=== PATIENT | male | born 1995 | race Caucasian/White ===

== ENCOUNTER 2025-04-16 15:30 | Emergency (ER) | payer BC, SELFPAY ==
[2025-04-16 15:39] VITALS: BP 173/86; PULSE 92; RESP 20; TEMP 36.8; O2SAT 100
[2025-04-16 15:51] LABS: EDUAAPPEAR Clear; EDUABILI Negative (Negative); EDUABLOOD Negative (Negative); EDUACOLOR1 Yellow; EDUAGLUCOSE Negative (Negative); EDUAKETONE Negative (Negative); EDUALEUKO Negative (Negative); EDUANITRATE Negative (Negative); EDUAPH 6.5; EDUAPROTEIN Negative (Negative); EDUASPGRAVITY 1.030; EDUAUROBILI 0.2
--- OUTSIDE RECORDS SUMMARY | 2025-04-16 16:40 | XMS_ITS | Encounter Summary ---
Author Organization [facility] Address [address] [place] [address] Phone Care Team Providers Care Livestock Buyer Name Role Phone Toya Perry APRN, AURY Primary Care Prov ider Mayank Lorenzo MD Unavailable Encounter Details Date Type Department Care Team (Late st Contact Info) Description 04/29/2022 Transcribe Orders [facility] Central Scheduling [address] [place] [address] Toya Perry APRN, SHIPPING HAND #[address] [address] Social History Tobacco Use Types Packs/Day Years Used Date Smoking Tobacco: Never Smokeless Tobacco: Never Alcohol Use Standard Drinks/Week Comments Not Currently 0 (1 standard drink = 0.6 oz pur e alcohol) PHQ-2 Answer Date Recorded Total Score - Questions 1-9 0 02/13 Sexually Active Control Partners Comments Yes None Female Sex and Gender Information Value Date Recorded Sex Assigned at Not on file Legal Sex Male 11:11 PM CDT Gender Identity Not on file Sexual Orientation Not on file COVID-19 Exposure Response Date Recorded In the last 10 days, have yo u been in contact with someone who was confirmed or suspected to have Coronavirus/COVID-19? No / Unsure 04/28/2022 8:20 AM EDDY CURRENT INSPECTOR documented as of this encounter Plan of Treatment Upcoming Encounters Date Type Department Care Team (Latest Contact Info) Description 05/29/2025 2:00 PM EDDY CURRENT INSPECTOR Outpatient Clinic Visit [facility] [address] [facility] [place] [address] Kya Reeves, MEGAN [address] [place] [address] Discharge Disposition: Discharged to home or Selfcare 08/13/2025 7:30 AM CDT Office Visit [facility] Medical [facility] - Family [facility] #2 [facility] [place] [address] Toya Perry APRN, SHIPPING HAND #[address] [address] documented as of this encounter Goals Goal Patient Goal Type Associated Problems Recent Progress Patient-Stated? Author worry less Anxiety Improving( 7:20 AM CDT) Yes Loren Martinez LCSW Note: to have reduction of anxiety and depression symptoms. Goal Reviewed with: patient today Readiness to change: Ready to change Department associated with goal: [facility] Steps to achieve goal: to attend, at least twice monthly, counseling sessions for 4 months. 45 minute sessions will be used. to identify, verbalize and process at least three contributing factors/triggers to anxiety. to identify and verbalize at least three actions/skills to prevent and/or cope with anxiety to put into action, at least one time weekly, for one month, an action/skill to prevent and or cope with anxiety. Behavioral Health Behavioral Health Improving( 7:20 AM CDT) No Loren Martinez LCSW Note: dealing with recent events Goal Reviewed with: patient Readiness to change: Ready to change Department associated with goal: [facility] Steps to achieve goal: 1. will attend at least four counseling sessions either individual and/or group, engaging in each session by verbalizing and processing thoughts and feelings related to grief and loss. 2. will report reduced feelings of guilt and resentment. 3. will identify and implement at least two outlets for grief and or coping skills to aid in managing problematic responses to grief. documented as of this encounter Visit Diagnoses Not on filedocumented in this encounter Additional Health Concerns Assessment Noted Time PHQ-9 Depression Total Score: 0 02/26/20 21 8:49 AM CDT documented as of this encounter Care Teams Livestock Buyer Relationship Specialty Start Date End Date Toya Perry APRN, SHIPPING HAND #[address] [facility] [address] [place] [address] PCP - General Advanced Practice Nurse 06/27/19 Mayank Lorenzo MD #[address] [facility] [address] [place] [address] Consulting Physician Urological Surgery 04/28/22 documented as of this encounter
--- OUTSIDE RECORDS SUMMARY | 2025-04-16 16:40 | XMS_ITS | Clinical Summary ---
Author Organization [facility] Address [address] [place] [address] Care Team Providers Care Occupational Therapy Manager Name Role Phone Kisha Thompson MD Primary Care Provider [phone] Source Comments [facility],non-owned Affiliates and Associated Physician Practices is amultiple site organization consisting of ambulatory clinics and hospital sitesin [place], [place], [place] and [place]. This disclosure is being madepursuant to the Care Everywhere program and may not contain all information available regarding this patient. Last updated 18.[facility] [employer] Medications * Be aware that medications may not be up to date on this document. Alwaysverify current medications with the patient. 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 Gender Identity Not on file Sexual Orientation Not on file Last Filed Vital Signs Vital Sign Reading Time Taken Comments Blood Pressure 114/60 12/22/2009 10:00 AM CDT Pulse 64 12/22/2009 10:00 AM CDT Temperature - - Respiratory Rate 12 12/22/2009 10:00 AM CDT Oxygen Saturation - - Inhaled Oxygen Concentration - - Weight 54.6 kg (120 lb 5.9 oz) 12/22/2009 9:45 A M CDT Height 168 cm (5' 6.14) 12/22/2009 9:45 AM CDT Body Mass Index 19.35 12/22/2009 9:45 AM CDT Plan of Treatment Health Maintenance Due Date Last Done Comments HIV SCREENING 2010 HEPATITIS C SCREENING 03/17/2013 DTAP/TDAP/TD VACCINES (1 - Tdap) 2014 HEPATITIS B VACCINE (1 of 3 - 19+ 3-dose series) 2014 HPV VACCINE (1 - 3-dose SCDM series) 2022 DEPRESSION SCREENING 05/16/2024 COVID-19 VACCINE (1 - 2024-2 6 season) 2025 INFLUENZA VACCINE (#1) 2025 ZOSTER VACCINE (1 of 2) 2045 HIB VACCINE Aged Out No longer eligi ble based on patient's age to complete this topic MENINGOCOCCAL (Group B) VACC INE SHARED DECISION-MAKING Aged Out No longer eligibl e based on patient's age to complete this topic MENINGOCOCCAL GROUPS A/C/Y/W VACCINE Aged Out No longer eligible b ased on patient's age to complete this topic PNEUMOCOCCAL VACCINE Aged Out No long er eligible based on patient's age to complete this topic Insurance MEDICAID - OUT OF STATE Care Teams Occupational Therapy Manager Relationship Specialty Start Date End Date Kisha Thompson MD [address] [place] [address] [facility] - General 12/22/09
--- OUTSIDE RECORDS SUMMARY | 2025-04-16 16:40 | XMS_ITS | Encounter Summary ---
Author Organization [facility] Address [address] [place] [address] Phone Care Team Providers Care Document Image Technician Name Role Phone Toya Perry APRN FRONT OFFICE HELP Primary Care Prov ider Mayank Lorenzo MD Unavailable Reason for Visit * Reason Comments Medication Refill Encounter Details Date Type Department Care Team (Late st Contact Info) Description 06/06/2023 Refill [facility] #2 [place] [address] Toya Perry APRN, FRONT OFFICE HELP #[address] [address] Medication Refill Social History Tobacco Use Types Packs/Day Years Used Date Smoking Tobacco: Never Smokeless Tobacco: Never Alcohol Use Standard Drinks/Week Comments Not Currently 0 (1 standard drink = 0.6 oz pur e alcohol) PHQ-2 Answer Date Recorded Total Score - Questions 1-9 0 04/15 Education Answer Date Recorded What is the highest level of school you have completed or the highest degree you have received? Associate degree: occupational, technical, or vocational program 12/16/2022 Sexually Active Control Partners Comments Yes None Female Sex and Gender Information Value Date Recorded Sex Assigned at Not on file Legal Sex Male 11:11 PM CDT Gender Identity Not on file Sexual Orientation Not on file documented as of this encounter Miscellaneous Notes * Telephone Encounter - Suly Terry RN - 06/06/2023 1:04 PM CST Medication failed the protocol, provider to review and approve the medication order if appropriate. Requested Prescriptions Pending Prescriptions Disp Refills escitalopram (LEXAPRO) 10 MG Tablet [Pharmacy Med Name: Escitalopram Oxalate 10 MG Oral Tablet] 30 Tablet 5 Sig: Take 1 tablet by mouth once daily SSRI (6 Month Refill Only) Protocol Failed - 06/06/2023 9:05 AM Failed - Patient has established therapy with SSRI for at least 6 months Passed - Visit with relevant provider in past 6 months or upcoming 90 days Recent Visits Date Type Provider Dept 04/29/23 Office Visit Toya Perry APRN, CNP [facility] 02/01/23 Office Visit Toya Perry APRN, CNP [facility] 12/17/22 Office Visit Toya Perry APRN, CNP [facility] Showing recent visits within past 182 days and meeting all other requirements Future Appointments No visits were found meeting these conditions. Showing future appointments within next 90 days and meeting all other requirements Passed - Has an encounter in the past 6 months with a depression, anxiety, adjustment disorder, OCD, or PTSD visit diagnosis JAVA PROGRAMMER documented in this encounter Plan of Treatment Upcoming Encounters Date Type Department Care Team (Latest Contact Info) Description 05/29/2025 2:00 PM LEAD JAVA PROGRAMMER Outpatient [facility] [address] [place] [address] Kya Reeves, [facility] [address] [place] [address] Discharge Disposition: Discharged to home or Selfcare 08/13/2025 7:30 AM CDT Office Visit [facility] Medical Group - Family Medicine [facility] #[address] [place] [address] Toya Perry APRN, FRONT OFFICE HELP #[address] [phone] documented as of this encounter Goals Goal Patient Goal Type Associated Problems Recent Progress Patient-Stated? Author worry less Anxiety Improving( 7:20 AM CDT) Yes Loren Martinez LCSW Note: to have reduction of anxiety and depression symptoms. Goal Reviewed with: patient today Readiness to change: Ready to change Department associated with goal: [facility] Steps to achieve goal: [...] Ready to change Department associated with goal: [facility] Steps to achieve goal: [...] Noted Time PHQ-9 Depression Total Score: 0 04/29/20 7:54 AM LEAD JAVA PROGRAMMER documented as of this encounter Care Teams Document Image Technician Relationship Specialty Start Date End Date Toya Perry, CAR SEAT COVERER, FRONT OFFICE HELP #2 [facility] [place] [phone] PCP - General Advanced Practice Nurse 2/12/20 Mayank Lorenzo MD #[address] [address] Consulting Physician Urological Surgery 04/28/22 documented as of this encounter
--- OUTSIDE RECORDS SUMMARY | 2025-04-16 16:40 | XMS_ITS | Clinical Summary ---
Author Organization [facility] Address #[address] [address] Phone Care Team Providers Care Boxing And Pressing Supervisor Name Role Phone Toya Perry APRN, CNP Primary Care Prov ider Mayank Lorenzo MD Unavailable Allergies No known active allergies Medications venlafaxine (EFFEXOR-XR) 37.5 MG CAPSULE SR 24 HRIndications:A nxiety Take 1 Capsule by mouth daily. 90 Capsule 2 02/11/2025 Active hydrOXYzine (ATARAX) 25 MG TabletIndicatio ns:Anxiety Take 1 Tablet by mouth every 8 hours as needed for Anxiety. 30 Tablet 02/11/2025 Active Active Problems Problem Noted Date Diagnosed Date Tension headache 11/07/2015 Anxiety Encounters Date Type Department Care Team Description 02/11/2025 3:45 PM CDT Office Visit [facility] [place] [address] Toya Perry APRN, CNP Anxiety Discharge Disposition: Discharged to home or Selfcare 02/11/2025 Travel from Last 3 Months Immunizations Immunization Administration Dates Next Due Covid-19, Mrna, Lnp-s, Pf, 3 0 Mcg/0.3 Ml Dose (Mass[employer]Ed) 10/02/2020 DTP Vaccine 10/26/2000,07/09/1996,1995 DTP-Hib 1995,1995 Hepatitis A Vaccine, Pediatric/adolescent, 2 Dose Schedule 05/02/2007 Hepatitis A Vaccine,unspecif ied Formulation 11/03/2007 Hepatitis B Vaccine, Pediatric/adolescent 1995,1995,1995 Hib Vaccine,unspecified Formulation 07/09/1996,0 1995 Human Papillomavirus Vaccine (HPV), quadrivalent 05/25/2012,03/23/2012,1995 Influenza Vaccine 03/23/2012 Influenza Vaccine, Quadrivalent, PF 01/14,02/26/2022,02/25/2021,05/28,02/14/2014,03/29/2013 Influenza,Split Virus,Trivalent,Injectable,PF 02/11/2025,02/09/2024 MMR Vaccine 03/23/1999,04/10/1996 Meningococcal Vaccine 03/23/2012 OPV 1995,1995,1995 Polio Vaccine,unspecified Formulation 10/26/2000 ,07/09/1996 TDAP Vaccine 02/25/2021,05/02/2007 Varicella Vaccine Live 11/03/2007,05/02/2007 Family History Medical History Relation Name Comments Kidney Stones Brother Baldomero Heart Attack Maternal Grandfather Ruy Jacobsen Diabetes Maternal Grandmother Lori Jacobsen Hypertension Maternal Grandmother Lori Jacobsen Anxiety disorder Mother Suly Relation Name Status Comments Brother Baldomero Alive Father Alive Maternal Grandfather Ruy Jacobsen Maternal Grandmother Lori Jacobsen Mother Suly Alive Social History Tobacco Use Types Packs/Day Years Used Date Smoking Tobacco: Never Smokeless Tobacco: Never Tobacco Cessation:Counseling Given: No Alcohol Use Standard Drinks/Week Comments Yes 0 (1 standard drink = 0.6 oz pur e alcohol) socially Color [employer] Utilities Answer Date Recorded In the past 12 months has [employer], gas, oil, or water [employer] threatened to shut off services in your home? No 08/09/2024 Social Connection and Isolation Panel Answer Date Recorded In a typical week, how many times do you talk on the phone with family, friends, or neighbors? More than three times a week 08/09/2024 How often do you get togethe r with friends or relatives? Twice a week 08/09/2024 How often do you attend chur ch or presybeterian services? Never 08/09/2024 Do you belong to any clubs o r organizations such as moravian groups, unions, fraternal or athletic groups, or school groups? No 08/09/2024 How often do you attend meet ings of the clubs or organizations you belong to? Never 08/09/2024 Are you , , di vorced, , never , or living with a partner? Living with partner 08/09/2024 AUDIT-C Answer Date Recorded Q1: How often do you have a drink containing alc ohol? Monthly or less 08/09/2024 Q2: How many drinks containi ng alcohol do you have on a typical day when you are drinking? 3 or 4 08/09/2024 Q3: How often do you have si x or more drinks on one occasion? Less than monthly 08/09/2024 Overall Financial Resource Strain (CARDIA) Answe r Date Recorded How hard is it for you to pa y for the very basics like food, housing, medical care, and heating? Somewhat hard 08/09/2024 PHQ-2 Answer Date Recorded Total Score - Questions 1-9 4 01/15 [facility] of Occupat ional Health - Occupational Stress Questionnaire Answer Date Recorded Do you feel stress - tense, restless, nervous, or anxious, or unable to sleep at night because your mind is troubled all the time - these days? Not at all 08/09/2024 Exercise Vital Sign Answer Date Recorde d On average, how many days pe r week do you engage in moderate to strenuous exercise (like a brisk walk)? 3 days 08/09/2024 On average, how many minutes do you engage in exercise at this level? 40 min 08/09/2024 Hunger Vital Sign Answer Date Recorded Within the past 12 months, y ou worried that your food would run out before you got the money to buy more. Never true 08/10/19 25 Within the past 12 months, t he food you bought just didn't last and you didn't have money to get more. Never true 08/09/2024 PRAPARE - Transportation Answer Date Re corded In the past 12 months, has l ack of transportation kept you from medical appointments or from getting medications? No 07/15 In the past 12 months, has l ack of transportation kept you from meetings, work, or from getting things needed for daily living? No 08/09/2024 Housing Stability Vital Sign Answer Flakito e Recorded In the last 12 months, was t here a time when you were not able to pay the mortgage or rent on time? No 09/13/2023 In the last 12 months, how many places have you lived? 1 09/13/2023 In the last 12 months, was t here a time when you did not have a steady place to sleep or slept in a skilled nursing (including now)? No 09/13/2023 Housing Stability Vital Sign Answer Flakito e Recorded In the last 12 months, was t here a time when you were not able to pay the mortgage or rent on time? No 08/09/2024 In the past 12 months, how m any times have you moved where you were living? 0 08/09/2024 At any time in the past 12 m [facility], were you homeless or living in a skilled nursing (including now)? No 08/09/2024 Education Answer Date Recorded What is the highest level of school you have completed or the highest degree you have received? Associate degree: occupational, technical, or vocational program 12/16/2022 Sexually Active Control Partners Comments Yes Male Condom, None Female Sex and Gender Information Value Date Recorded Sex Assigned at Not on file Legal Sex Male 11:11 PM CDT Gender Identity Not on file Sexual Orientation Not on file Last Filed Vital Signs Vital Sign Reading Time Taken Comments Blood Pressure 118/86 02/11/2025 3:38 PM CDT Pulse 78 02/11/2025 3:38 PM CDT Temperature 36.6 C (97.9 F) 02/11/2025 3:38 PM CDT Respiratory Rate 16 02/11/2025 3:38 PM CDT Oxygen Saturation 99% 02/11/2025 3:38 PM CDT Inhaled Oxygen Concentration - - Weight 94.3 kg (208 lb) 02/11/2025 3:38 PM CDT Height 172.7 cm (5' 8) 02/11/2025 3:38 PM CDT Body Mass Index 31.63 02/11/2025 3:38 PM CDT Plan of Treatment Upcoming Encounters Date Type Department Care Team (Latest Contact Info) Description 05/29/2025 2:00 PM STATION INSTALLER AND REPAIRER Outpatient [facility] 1 [place] [address] Kya Reeves, MEGAN [address] [place] [address] Discharge Disposition: Discharged to home or Selfcare 08/13/2025 7:30 AM CDT Office Visit [facility] Medical Group - Family Medicine [facility] #2 [place] [address] Toya Perry APRN, BOTTOM WHEELER #[address] [phone] Health Maintenance Due Date Last Done Comments DTaP/Tdap/Td Immunization (8 - Td or Tdap) 02/25/2031 02/25/2021, 05/02/2007, 10/26/2000, Additional history exists Respiratory Syncytial Virus (RSV) Immunization (Adult) (1 - 1-dose 75+ series) 2070 Hepatitis B Immunization Completed 996, 1995, 1995 Varicella Immunization Completed 11/03/2007, 2006 Meningococcal Immunization (ACWY) Completed 03/23/2012 Human Papillomavirus (HPV) Immunization Discontinued 05/25/2012, 03/23/2012, 1995 SARS-COV-2 Immunization Discontinued 10/23/2020, 10/02 Influenza Immunization Completed 5, 02/09/2024, 02/01/2023, Additional history exists Hepatitis C Virus (HCV) Screening Discontinued Pneumococcal Immunization Combined Aged Out No longer eligible based on patient's age to complete this topic Rotavirus Immunization Aged Out No lo nger eligible based on patient's age to complete this topic Goals Goal Patient Goal Type Associated Problems Recent Progress Patient-Stated? Author worry less Anxiety Improving( 7:20 AM CDT) Yes Loren Martinez LCSW Note: to have reduction of anxiety and depression symptoms. Goal Reviewed with: patient today Readiness to change: Ready to change Department associated with goal: [facility] Steps to achieve goal: [...] Ready to change Department associated with goal: [facility] Steps to achieve goal: [...] aid in managing problematic responses to grief. Insurance [facility] Advance Directives Documents on File Type Date Recorded Patient Manager Government Expl anation Other Advance Directive 04/28/2022 1:07 PM IPSS Care Teams Boxing And Pressing Supervisor Relationship Specialty Start Date End Date Toya Perry APRN, BOTTOM WHEELER #2 [facility] [address] [place] [address] PCP - General Advanced Practice Nurse 06/27/19 Mayank Lorenzo MD #2 [facility] [address] [place] [address] Consulting Physician Urological Surgery 04/28/22
--- OUTSIDE RECORDS SUMMARY | 2025-04-16 16:40 | XMS_ITS | Clinical Summary ---
Author Organization [facility] Address [address] [place] [address] Care Team Providers Care Career Services Representative Name Role Phone Toya Perry NP Primary Care Provider + Allergies No known active allergies Medications ibuprofen (ADVIL,MOTRIN) 600 mg tablet Take 1 tablet (600 mg total) by mouth 4 (four) times a day as needed for pain. Take with food. 30 tablet 8 Active Additional Information Patient not taking.Reported on 08/16/2024 hydrOXYzine (ATARAX) 25 mg tablet Take 1 tablet (25 mg total) by mouth every 8 (eight) hours as needed 3 Active clindamycin (CLINDAGEL) 1 % gel Apply 1 Dose topically 2 (two) times a day 3 Active escitalopram (LEXAPRO) 10 mg tablet Take 1 tablet (10 mg total) by mouth daily Active buPROPion XL (WELLBUTRIN XL) 150 mg 24 hr tablet Take 1 tablet (150 mg total) by mouth daily 5 Active busPIRone (BUSPAR) 5 mg tablet Take 1 tablet (5 mg total) by mouth 2 (two) times a day 5 Active famotidine (PEPCID) 20 mg tablet Take 1 tablet (20 mg total) by mouth 2 (two) times a day 5 Active FLUoxetine (PROzac) 20 mg capsule Take 1 capsule (20 mg total) by mouth daily 5 Active Active Problems No known active problems Medical History Medical History Date Comments Heartburn Social History Tobacco Use Types Packs/Day Years Used Date Smoking Tobacco: Never Alcohol Use Standard Drinks/Week Comments Yes 0 (1 standard drink = 0.6 oz pur e alcohol) monthly Personal Safety Answer Date Recorded Have you ever been in or are you currently in a harmful physical or emotional relationship or is someone making you feel afraid or unsafe? Denies 05/17/2024 Sex and Gender Information Value Date Recorded Sex Assigned at Not on file Legal Sex Male 10:15 AM GENERALIST Gender Identity Not on file Sexual Orientation Not on file Last Filed Vital Signs Vital Sign Reading Time Taken Comments Blood Pressure 134/82 08/16/2024 2:09 PM CDT Pulse 87 08/16/2024 2:09 PM CDT Temperature 37.1 C (98.7 F) 08/16/2024 2:09 PM CDT Respiratory Rate 18 08/16/2024 2:09 PM CDT Oxygen Saturation 98% 08/16/2024 2:09 PM CDT Inhaled Oxygen Concentration - - Weight 99.8 kg (220 lb) 08/16/2024 2:09 PM CDT Height 172.7 cm (5' 8) 08/16/2024 2:09 PM CDT Body Mass Index 33.45 08/16/2024 2:09 PM CDT Plan of Treatment Health Maintenance Due Date Last Done Comments Depression Screening 1995 Hepatitis C Screening 1995 HPV Vaccines (3 - Male 3-dose series) 09/20/2012 05/25/2012, 03/23/2012, 1995 Regular Well Visit/Exam 18-64 2013 Covid-19 Vaccine ( - season) 2025 10/23/2020, 10/02/2020 Influenza Vaccine (#1) 2025 , 02/01/2023, 02/26/2022, Additional history exists DTaP/Tdap/Td Vaccine (8 - Td or Tdap) 02/25/2031 02/25/2021, 05/02/2007, 10/26/2000, Additional history exists Hepatitis B Screening Completed 1995 , 1995, 1995 Varicella Vaccines Completed 11/03/2007, 05/02/2007 Pneumococcal vaccine <65 Aged Out No longer eligible based on patient's age to complete this topic Insurance [employer] [place] Care Teams Career Services Representative Relationship Specialty Start Date End Date Toya Perry NP [address] [address] PCP - General Nurse Practitioner 05/27/23
--- NOTE | 2025-04-16 16:56 | PC.NURSE ---
No urine cx to be sent per Abundio BERGERON NP
--- NOTE | 2025-04-16 17:14 | ED.GENADULT ---
HPI - General Adult General Chief complaint: Urogenital-Male Stated complaint: Back Pain Patient presents for evaluation of back pain for last 2 weeks. Pain is in the midline of the thoracic spinal region. Pain was initially intermittent but became more constant as of yesterday. Prior to coming in today his pain level was 8/10 but pain has markedly improved since his arrival. No radicular component. He had similar symptoms in the past with a kidney stone. He states he is aware of the fact that the location of his pain was somewhat atypical for kidney stones. He has experienced some urinary symptoms with the course of the last year that includes one episode per night nocturia, decreased force of urinary stream, incomplete emptying and dribbling. Denies urethral discharge. Related Data Home Medications ?Medication ?Instructions ?Recorded ?Confirmed ?Last Taken ?Type hydroxyzine HCl 25 mg tablet mg 04/16/25 Unknown History Allergies Allergy/AdvReac Type Severity Reaction Status Date / Time No Known Allergies Allergy Verified 04/16/25 15:41 Review of Systems Review of Systems: CONSTITUTIONAL: Denies fever, chills, or sweats. EYES: Denies visual changes, redness, or discharge. ENT: Denies rhinorrhea, congestion, sore throat, or otalgia. CARDIOVASCULAR: Denies chest pain, palpitations, or edema. RESPIRATORY: Denies cough or dyspnea. GASTROINTESTINAL: Denies abdominal pain, nausea, vomiting, or diarrhea. GENITOURINARY: Reports 1 episode per night nocturia, decreased force of urinary stream, incomplete emptying, and dribbling. Denies urethral discharge and hematuria SKIN: Denies rash or itching. MUSCULOSKELETAL: reports back pain. NEUROLOGIC: Denies headache, numbness, dizziness, or weakness. PSYCHIATRIC: Denies anxiety or depression. [facility] Past Medical History Medical History History of anxiety History of kidney stones Surgical History Surgical History No pertinent past surgical history Family History Family History Mother Family history non-contributory Social History Social History Smoking status: Never smoker Substance use: never Gender identity (if verbalized by the patient): Male Spiritual care concerns: No Exam Narrative: GENERAL: Well-appearing, well-nourished, and in no acute distress. HEAD: Normocephalic, atraumatic. EYES: PERRLA and EOMI. ENT: Nares clear, no rhinorrhea or epistaxis. Mucous membranes moist. Oropharynx without tonsillar hypertrophy exudate or other lesions. Bilateral TMs pearly [place] nonbulging NECK: Supple. No adenopathy or masses. No carotid bruits or JVD CHEST: Clear to auscultation. No respiratory distress. No wheezes rales or rhonchi HEART: Regular rate and rhythm. No murmur heard. Normal peripheral pulses. ABDOMEN: Soft, nontender, nondistended, normal active bowel sounds. BACK: no tenderness in the midline or paraspinous muscles of the thoracic or lumbar spine. No CVA tenderness EXTREMITIES: Normal range of motion. No edema. SKIN: Warm, dry, no rash. NEURO: No focal deficits. Alert and oriented x3. PSYCH: Normal mood and affect. Course Course Emergency Course: this is a 30-year-old male who presented for evaluation of back pain. We discussed possible etiologies including musculoskeletal pathology versus kidney stone, he is aware of the fact that his location of pain is atypical for kidney stones. At the present time his pain is controlled. Therefore we decided not to send him to the hospital for imaging. He does have some lower urinary tract symptoms that have been present for about a year. We mutually agreed to start Flomax which may help his LUTS and would potentially help with he did have a kidney stone. Will also discharge with Flexeril in the event that this is a musculoskeletal problem. He will increase his hydration and go to the emergency department for recurrent or worsening symptoms. Otherwise year old follow-up outpatient with primary care. Patient in agreement with plan of care. Level of Care: Express Care Visit Vital Signs Vital signs: Vital Signs Temperature 36.8 C 04/16/25 15:39 Pulse Rate 92 04/16/25 15:39 Respiratory Rate 20 04/16/25 15:39 Blood Pressure 173/86 H 04/16/25 15:39 Pulse Oximetry 100 04/16/25 15:39 Oxygen Delivery Room Air 04/16/25 15:39 Temperature 36.8 C 04/16/25 15:39 Pulse Rate 92 04/16/25 15:39 Respiratory Rate 20 04/16/25 15:39 Blood Pressure 173/86 H 04/16/25 15:39 Pulse Oximetry 100 04/16/25 15:39 Oxygen Delivery Room Air 04/16/25 15:39 [facility] Differential Diagnosis Differential Diagnosis: Thoracic myofascial strain versus kidney stone verses thoracic compre Lab Data Labs: Lab Results 04/16/25 Range/Units 15:48 POC Urine Color Yellow POC Urine Clarity Clear POC Urine pH 6.5 POC Ur Specif [place] 1.030 POC Urine Protein Negative (Negative) POC Ur Glucose (UA) Negative (Negative) POC Urine Ketones Negative (Negative) POC Urine Blood Negative (Negative) POC Urine Nitrite Negative (Negative) POC Urine Bilirubin Negative (Negative) POC Urine Urobilinogen 0.2 POC U Leukocyte Esteras Negative (Negative) Discharge Plan Discharge Clinical Impression: History of kidney stones, Lower urinary tract symptoms (LUTS), Back pain Patient Disposition: Home Condition: Stable Instructions: Antibiotic Form, Kidney Stones (ED), Back Pain (ED) Additional Instructions: INCREASE WATER INTAKE FOR RECURRENT OR WORSENING SYMPTOMS, PLEASE GO TO THE EMERGENCY DEPARTMENT Patient Language: Kiswahili Prescriptions: New tamsulosin 0.4 mg capsule 0.4 mg PO DAILY Qty: 15 0RF cyclobenzaprine 10 mg tablet 10 mg PO TID PRN (Reason: muscle spasm) Qty: 15 0RF No Action hydroxyzine HCl 25 mg tablet Follow-up/Referrals: [place],Toya Davis APRN [Primary Care Provider, Unknown] Time of Disposition: 17:00
== END 2025-04-16 17:06 | disposition home or self-care (01) ==
PROVIDERS: Emergency Provider Nurse Practitioner; PCP Nurse Practitioner
DX: R35.1 Nocturia (principal); R33.9 Retention of urine, unspecified; N39.43 Post-void dribbling; M54.6 Pain in thoracic spine; Z87.442 Personal history of urinary calculi; F41.9 Anxiety disorder, unspecified
CPT/HCPCS: 81003; 99203; G0463